=== PATIENT | male | born 1970 | race Caucasian/White ===

== ENCOUNTER 2017-06-27 11:20 | Emergency (ER) | payer OTHER ==
[~2017-06-27] VITALS: Ht 170.2 cm; Wt 111.1 kg
[~2017-06-27 11:20] MED LIST: NAPROSYN500 M1 PO; NOMEDS XX; ROBAXIN-750750 MG PO; VALIUM 10MG TAB10 MG PO
--- OUTSIDE RECORDS SUMMARY | 2017-06-27 11:31 | External Medical Summary Rpt | CCD ---
Author Author [employer] Organization [employer] Address Unknown Phone Unavailable Purpose Continuity of Care Document - through 2016
--- OUTSIDE RECORDS SUMMARY | 2017-06-27 11:31 | External Medical Summary Rpt ---
Author Author STACY Mora, [employer] Organization [employer] Address Unknown Phone Unavailable
--- OUTSIDE RECORDS SUMMARY | 2017-06-27 11:31 | External Medical Summary Rpt | CCD ---
Demographics Preferred Language Citizen Of [place] Marital Status Unknown Sabianist Affiliation Unknown Race Unknown Ethnic Group Unknown Author Author , STACY Organization STAC[employer] Address Unknown Phone [email or web address] ([employer]) Immunization Name Date Rout CVX Reac Dose Comm Prov Is Faci e tion ent ider Refu lity Give sed n Td 03-0 9 999 Hist H109 No H109 (nidia 5-19 oric lt), 97 al Info adso rmat rbed ion - Sour ce Unsp ecif ied
--- OUTSIDE RECORDS SUMMARY | 2017-06-27 11:31 | External Medical Summary Rpt | CCD ---
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 Role Phone Kiana Lee MD, Unavailable Unavailable Kiana Lee MD Purpose Continuity of Care Document - 06-26-2013 through 2016 Problems Code Diagnosis DOS Provider Status 729.81 729.81 06-26-2013 Jeanmarie ROSENTHAL [facility] Allergies, Adverse Reactions, Alerts Type Drug Allergy Adverse Reaction to Substance Substance Reaction Severity Codeine NA-NAUSEA Unknown Tramadol Unknown Unknown Medications Na ND Rx Da Fi Fi Am Da Di Ph RX Ph St me C No te ll ll ou ys ag ar # ys at rm s nt no ma ic us Or Da si cy ia de te s n re d KE 00 11 0 No TO 40 -2 RO 93 7- Lo LA 79 20 ng C 50 13 er 30 1 Ac MG ti /M ve L AL Vital Signs 06-26-2013 13:55 Name Value Interpretat Reference Comment ion Range Body 97.9 [degF] Temperature BP 76 mm[Hg] Diastolic BP Systolic 122 mm[Hg] Heart 80 /min Rate/Pulse O2% 98 % Respiratory 22 /min Rate 06-26-2013 13:18 Name Value Interpretat Reference Comment ion Range BP 79 mm[Hg] Diastolic BP Systolic 121 mm[Hg] Heart 81 /min Rate/Pulse O2% 97 % Respiratory 18 /min Rate Encounters Encounter Start End Date Code Location Performer Type Date Emergency RYANN Lee MD (ER) 3 13:02 3 14:03 [facility]
--- OUTSIDE RECORDS SUMMARY | 2017-06-27 11:31 | External Medical Summary Rpt | CCD ---
Demographics Preferred Language Beninese Marital Status Unknown Muslim Affiliation Unknown Race Unknown Ethnic Group Unknown Author Author , STACY Organization [employer]AC[employer] Address Unknown Phone [email or web address] Immunization Name Date Rout CVX Reac Dose Comm Prov Is Faci e tion ent ider Refu lity Give sed n Td 03-0 9 999 Hist H109 No H109 (nidia 5-19 oric lt), 97 al Info adso rmat rbed ion - Sour ce Unsp ecif ied
--- OUTSIDE RECORDS SUMMARY | 2017-06-27 11:31 | External Medical Summary Rpt | CCD ---
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
--- NOTE | 2017-06-27 11:48 | Urgent Treatment Center Report ---
See Addendum History of Present Issue Date/Time Seen by Provider 06/27/17 1140 Visit Reason Pt arrived:Walked Presenting Problem:PT STATES HE FELL AT WORK AND IS C/O RIGHT NECK, SHOULDER AND WRIST PAIN Location if Accident:Work Onset of symptoms date/time:06/27/17/ or onset unknown for:MEDICAL HX UNKNOWN Have you (or family members/close friends) recently traveled outside the [place]? N If Yes, where/when: Have you had exposure to infectious disease within the past month? TB? Other? Specify: Patient state that he was at work and he lost his balance and fell. State that he stuck his arm out to catch himself and landed on his right arm State that ever since he feels sore in his shoulder area, elbow and wrist States that he feels like he "jammed" himself up but work wanted him to come in and get an xray ALLERGIES Coded Allergies: Penicillins (06/27/17) codeine (06/27/17) ibuprofen (upset stomach 06/27/17) tramadol (06/27/17) History Medical History General CAD? No Angina: No SD: No Hypertension? No Hyperlipidemia? No CHF? No DVT? No PE? No COPD? No Asthma? No Anemia? No GERD? No Gastric ulcers? No GI Bleed? No Hernia? No Thyroid Problems? No Hypothyroidism? No CVA? No Seizures? No Diabetes? No Renal Insuffiency? No UTI? No Stones? No BPH? No GB Disease: No Nephritic Syndrome? No Asplenia? No Hepatitis? No Sickle Cell Disease? No Arthritis? No Migraines? No Cataracts? No Glaucoma? No MRSA? No HIV? No TB? No Anxiety? No Depression? No Cancer? No More? No Immunization HX DT/Tetanus Unknown Surgical Hx Previous Surgery?N Social History Smoking Hx Smoker: Current Every Day Smoker Tobacco: Yes Type Cigarettes Packs/day < 1 Pack Alcohol Alcohol: No Review of Systems All Other Systems Reviewed and Negative Comment Pain in right shoulder, elbow and wrist after slipping and falling at work and landing on right arm Physical Exam Vital Signs Vital Signs Date Time Temp Pulse Resp B/P Pulse O2 O2 Flow FiO2 Ox Delivery Rate 06/27 1135 98.0 78 20 147/89 98 General Appearance normal appearance, WD/WN, no apparent distress Respiratory Status Yes: trachea midline, chest symmetrical, non tender chest. No: respiratory distress. Lung Sounds bilateral: normal breath sounds, lungs clear. Cardiovascular normal exam, regular rate/rhythm, no peripheral edema Neurologic alert, normal exam, oriented x 3 Medical Decision Making LABS/Meds/Orders Pt receiving controlled substance in ED? No Results/Orders Orders Procedure Date/time Status UTC STABILIZE JOINT/AREA 06/27 1303 Active WRIST-3 VIEWS-RT 06/27 1145 Active XOV-[id number]-[id number]-UNI-3 VIEWS 06/27 1145 Active ELBOW-RT-3 VIEWS 06/27 1145 Active XRAY/CT/US XRAY/CT/US XRAY elbow, shoulder, wrist Progress UT Progress Notes Comment Patient state that he is not allergic to ibuprofen states that it just gives him an upset stomach Patient informed to take medication with food will help with upset stomach Departure Departure Time of Disposition 1253 Disposition DC Home or Self Care(routine) Clinical Impression Primary Impression: Shoulder strain Qualifiers: Encounter type: initial encounter Laterality: right Qualified Code: S46.911A - Strain of unspecified muscle, fascia and tendon at shoulder and upper arm level, right arm, initial encounter Condition STABLE Referrals JOSH GALLO (Family) Follow up on Monday if stilll having pain Patient Instructions DI for Muscle Spasm, DI for Shoulder Sprain, Shoulder Sprain Additional Instructions *RICE, Rest the extremity, Ice 15-20 minutes 3-4 times daily, Compress- wear the jf wrap as discussed as much as possible to help reduce swelling and pain, Elevate the extremity when at rest *Jf wrap is for support and help control swelling, use it except in the shower. Be sure that is not to tight but not to loose either *Elevate when resting *Tylenol as needed for pain . If need something more can take Tylenol in between doses of Ibuprofen to help Immediately follow up for new or worsening of symptoms, or no noticeable improvement over the next 3-5 days Discharge Counseling Counseled pt/family regarding diagnosis, medications/RX, home care, follow up needs Prescriptions Current Visit Scripts Cyclobenzaprine Hcl (Flexeril) 10 MG PO TID #15 TAB NAPROXEN (NAPROSYN 500MG TAB) 500 MG PO BID #20 TAB at 2071
[2017-06-27] MEDS ORDERED: FLEXERIL10 MG PO (12:55)
[2017-06-27] MEDS ORDERED: NAPROSYN 500MG500 MG PO (13:01)
[2017-06-27 13:16] VITALS: BP 147/89
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
--- NOTE | 2017-06-27 13:21 | RADIOLOGY REPORT PS360 ---
WRIST-3 VIEWS-RT HISTORY: Pain following injury FELL AT WORK ORDERING PHYSICIAN: NANCY RODRIGUES APRN PATIENT AGE: 47 years COMPARISON: None FINDINGS: No fracture or dislocation. No lytic or blastic change. There is normal mineralization.. The joint spaces are well-preserved. No significant degenerative/arthritic changes. No erosive changes evident.. IMPRESSION: Negative wrist
--- NOTE | 2017-06-27 13:21 | RADIOLOGY REPORT PS360 ---
ELBOW-RT-3 VIEWS HISTORY: Pain following injury FELL AT WORK ORDERING PHYSICIAN: NANCY RODRIGUES APRN PATIENT AGE: 47 years COMPARISON: None FINDINGS: BONY STRUCTURES: No fracture or dislocation. No lytic or blastic change. Normal mineralization. SOFT TISSUES: Unremarkable. No radio opaque foreign bodies. No displaced fat pad. JOINT SPACE: Well-preserved. No significant arthritic changes evident. IMPRESSION: Negative elbow.
== END 2017-06-27 13:25 | disposition home or self-care (01) ==
LOC: UTC 11:20
PROC: 2W3CX1Z Immobilization of Right Lower Arm using Splint (ICD-10-PCS; principal; 2017-06-27)
DX: S46.911A Strain of unspecified muscle, fascia and tendon at shoulder and upper arm level, right arm, initial encounter (principal); F17.210 Nicotine dependence, cigarettes, uncomplicated; Z88.0 Allergy status to penicillin; Z88.6 Allergy status to analgesic agent; W01.0XXA Fall on same level from slipping, tripping and stumbling without subsequent striking against object, initial encounter; Y92.69 Other specified industrial and construction area as the place of occurrence of the external cause; Y99.0 Civilian activity done for income or pay